=== PATIENT | female | born 1945 | race Caucasian/White ===

== ENCOUNTER → 2016-02-19 | Outpatient (REF) | LOC: ZLAB.WCH 10:11 | DX: Z01.89 Encounter for other specified special examinations (principal) ==

== ENCOUNTER → 2016-11-14 | Outpatient (REF) | LOC: ZLAB.WCH 18:05 | DX: Z01.89 Encounter for other specified special examinations (principal) ==

== ENCOUNTER → 2017-05-12 | Outpatient (REF) | LOC: ZLAB.WCH 16:05 | DX: Z01.89 Encounter for other specified special examinations (principal) ==

== ENCOUNTER → 2017-12-04 | Outpatient (REF) | LOC: ZLAB.WCH 18:12 | DX: Z01.89 Encounter for other specified special examinations (principal) ==

== ENCOUNTER → 2018-05-06 | Outpatient (REF) | LOC: ZLAB.WCH 16:19 | DX: Z01.89 Encounter for other specified special examinations (principal) ==